=== PATIENT | male | born 1995 | race Caucasian/White ===

== ENCOUNTER 2021-04-14 21:31 | Emergency (ER) | payer BC ==
--- NOTE | 2021-04-14 22:00 | ED ---
General Adult HPI <Velasquez Mclain - Last Filed: 04/15/21 05:08> - General Source: patient, EMS Mode of arrival: EMS Limitations: no limitations <Harvinder Nlul - Last Filed: 04/20/21 16:00> - General Chief complaint: Psychiatric Symptoms Stated complaint: Mental Health, lt arm laceration Time Seen by Provider: 04/14/21 21:48 - History of Present Illness Initial comments: Dictation was produced using [employer] dictation software. please excuse any grammatical, word or spelling errors. Chief Complaint: 25-year-old male presents with suicidal behavior. History of Present Illness: A 5-year-old male presents emergency department for suicidal behavior. Patient allegedly has been undergoing a lot of stress recently. He states that he is A lot of bills paid that he may not be able to make ends meet financially. He just broke up with his girlfriend. 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 He sent a message to his ex- girlfriend asking her to help clean up. 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 Patient denies suicidality at this time. He is apologetic for what he did. More history was obtained from patient's friend who understands that patient held a gun to his head. Patient had several alcoholic beverages today. The ROS documented in this emergency department record has been reviewed and confirmed by me. Those systems with pertinent positive or negative responses have been documented in the HPI. All other systems are other negative and/or noncontributory. PHYSICAL EXAM: General Impression: Alert and oriented x3, not in acute distress HEENT: Normocephalic atraumatic, extra-ocular movements intact, pupils equal and reactive to light bilaterally, mucous membranes moist. Cardiovascular: Heart regular rate and rhythm Chest: Able to complete full sentences, no retractions, no tachypnea Abdomen: abdomen soft, non-tender, non-distended, no organomegaly Musculoskeletal: Pulses present and equal in all extremities, no peripheral edema Motor: no focal deficits noted Neurological: CN II-XII grossly intact, no focal motor or sensory deficits noted Skin: Superficial laceration to the left anterior forearm measuring approximately 4 cm Psych: Normal affect and mood ED course: 25-year-old male presents with suicidal behavior. Alcohol today. Signs upon arrival shows findings within acceptable limits. Patient's petitioned by his best friend is at the bedside. Patient refusing stitches. he agreed to Steri-Strip repair. Patient care signed out to Dr. Mclain. Patient was petitioned by friend. (Harvinder Null) - Related Data Home Medications Medication Instructions Recorded Confirmed No Known Home Medications 04/14/21 04/14/21 Allergies Allergy/AdvReac Type Severity Reaction Status Date / Time No Known Allergies Allergy Verified 04/14/21 23:03 Review of Systems ROS Other: All systems not noted in ROS Statement are negative. <Velasquez Mclain - Last Filed: 04/15/21 05:08> ROS Other: All systems not noted in ROS Statement are negative. <Harvinder Null - Last Filed: 04/20/21 16:00> ROS Statement: Those systems with pertinent positive or pertinent negative responses have been documented in the HPI. Past Medical History Past Medical History: No Reported History History of Any Multi-Drug Resistant Organisms: None Reported Past Surgical History: Orthopedic Surgery Additional Past Surgical History / Comment(s): left ACL, and left ankle surgery Past Psychological History: No Psychological Hx Reported Smoking Status: Former smoker Past Alcohol Use History: Heavy Past Drug Use History: Marijuana <Harvinder Null - Last Filed: 04/20/21 16:00> General Exam Limitations: no limitations <Harvinder Null - Last Filed: 04/20/21 16:00> Course Vital Signs 04/14/21 04/15/21 21:45 05:18 Temperature 98.9 F 97.9 F Pulse Rate 115 H 68 Respiratory 18 16 Rate Blood Pressure 137/80 117/73 O2 Sat by Pulse 98 99 Oximetry Procedures - Laceration Laceration #1 Consent Obtained: verbal consent Indication: laceration Site: other (right forearm, 4 cm) Description: linear Depth: simple, single layer Type of Sutures: other (steri strips) Technique: simple, interrupted Patient Tolerated Procedure: well <Harvinder Null - Last Filed: 04/20/21 16:00> Disposition Is patient prescribed a controlled substance at d/c from ED?: No <Velasquez Mclain - Last Filed: 04/15/21 05:08> Is patient prescribed a controlled substance at d/c from ED?: No <Harvinder Null - Last Filed: 04/20/21 16:00> Clinical Impression: Suicidal behavior, Alcohol intoxication Disposition: HOME SELF-CARE Condition: Good Instructions (If sedation given, give patient instructions): Alcohol Intoxication (DC) Referrals: None,Stated [Primary Care Provider] - 1-2 days
[2021-04-14] MEDS ORDERED: DIPH,PERTUS(ACELL)TETVAC-LF 0.5 ML VIAL IM ONE (22:02)
[2021-04-15 05:20] VITALS: BP 117/73; PULSE 68; RESP 16; TEMP 97.9
== END 2021-04-15 05:18 | disposition home or self-care (01) ==
LOC: EC 21:31
DX: S51.812A Laceration without foreign body of left forearm, initial encounter (principal); R45.851 Suicidal ideations; F10.129 Alcohol abuse with intoxication, unspecified; Z23 Encounter for immunization; Z87.891 Personal history of nicotine dependence; X78.9XXA Intentional self-harm by unspecified sharp object, initial encounter
CPT/HCPCS: 12002; 82075; 90471; 90715; 99284